=== PATIENT | male | born 1950 ===

== ENCOUNTER 2018-07-01 15:39 | Emergency (ER) | payer OTHER ==
[2018-07-01] MEDS: ALUMINUM/MAGNESIUM 30 ML SUS PO ONE (15:48)
[2018-07-01] MEDS: LIDOCAINE HCL 2% (VISCOUS) 20 ML SOL MT ONE (15:49)
[2018-07-01 15:57] VITALS: RESP 20; TEMP 97.6
[2018-07-01] MEDS: ASPIRIN 81 MG CHEWABLE CTB PO ONE (15:57)
[2018-07-01] MEDS ORDERED: ALUMINUM/MAGNESIUM 30 ML SUS ONE (15:58)
[2018-07-01] MEDS ORDERED: ASPIRIN 81 MG CHEWABLE CTB ONE (15:58)
[2018-07-01] MEDS ORDERED: LIDOCAINE HCL 2% (VISCOUS) 20 ML SOL ONE (15:58)
[2018-07-01 16:00] LABS: BASOPHILS % (AUTO) 0 % (0-3); EOSINOPHILS % (AUTO) 1 % (0-9); HEMATOCRIT 26 % (39-53); HEMOGLOBIN 8.3 gm/dl (13.5-17.7); LYMPHOCYTES % (AUTO) 16.3 % (10-50); MEAN CORPUSCULAR HEMOGLOBIN 26.8 pg (27.0-32.0); MEAN CORPUSCULAR HGB CONC 31.5 gm/dl (32.0-36.0); MEAN CORPUSCULAR VOLUME 85 fL (80-100); MONOCYTES % (AUTO) 10.4 % (0-12); NEUTROPHILS % (AUTO) 72.2 % (37-80)
[2018-07-01] MEDS: SODIUM CHLORIDE 0.9% 1000ML 1,000 ML IV ONE (16:15)
[2018-07-01 16:20] LABS: ALBUMIN 3.2 gm/dl (3.4-5.0); ALKALINE PHOSPHATASE 90 IU/L (46-116); ALT 26 IU/L (14-63); AMYLASE 81 IU/L (25-115); AST 19 IU/L (15-37); BILIRUBIN,DIRECT 0.1 mg/dl (0.0-0.2); BILIRUBIN,TOTAL 0.2 mg/dl (0.2-1.0); BLOOD UREA NITROGEN 16 mg/dl (7-18); CALCIUM 9.2 mg/dl (8.5-10.1); CHLORIDE 102 mMol/L (98-107); CREATININE 0.87 mg/dl (0.80-1.30); GLUCOSE 141 mg/dl (74-106); POTASSIUM 3.7 mMol/L (3.5-5.1); SODIUM 136 mMol/L (136-145); TOTAL PROTEIN 8.1 gm/dl (6.4-8.2); TROP I < 0.017 ng/ml (0.000-0.056)
[2018-07-01 16:25] LABS: CARBON DIOXIDE 29.5 mEq/L (21-32)
[2018-07-01] MEDS ORDERED: PANTOPRAZOLE SODIUM 40 MG/10 ML PDS ONE (16:27)
[2018-07-01] MEDS: PANTOPRAZOLE SODIUM 40 MG VIAL 80 MG in SODIUM CHLORIDE 0.9% 100 ML 80 ML IV ONE (16:35)
[2018-07-01] MEDS: ALBUTEROL/IPRATROPIUM 1 VIAL SOL INH ONE (17:18)
[2018-07-01] MEDS ORDERED: MAGNESIUM OXIDE 400 MG TAB ONE (17:50)
[2018-07-01] MEDS ORDERED: SUCRALFATE 1 GM TAB ONE (17:51)
[2018-07-01] MEDS: SUCRALFATE 1 GM TAB PO SCH (17:56)
[2018-07-01] MEDS: MAGNESIUM OXIDE 400 MG TAB PO SCH (17:56)
[2018-07-01] MEDS ORDERED: ALBUTEROL/IPRATROPIUM 1 VIAL SOL ONE (17:57)
[2018-07-01 19:06] VITALS: BP 131/72; PULSE 95; O2SAT 95
[2018-07-01 22:32] LABS: *FERRITIN 7 ng/ml (22-322); *IRON BINDING CAPACITY 500 mcg/dl (228-410)
== END 2018-07-01 18:10 | DRG 313 ==
LOC: ED 15:39
DX: R07.89 Other chest pain (principal); K20.9 Esophagitis, unspecified; D64.9 Anemia, unspecified; E83.42 Hypomagnesemia; K44.9 Diaphragmatic hernia without obstruction or gangrene; K21.0 Gastro-esophageal reflux disease with esophagitis
CPT/HCPCS: 71046; 80048; 80076; 82150; 83735; 84484; 85025; 93005; 96365; 99070; 99284; 99285; A9270-GY